=== PATIENT | female | born 1960 | race Caucasian/White ===

== ENCOUNTER 2020-11-21 15:35 | Outpatient (CLI) | payer BC | END 2020-11-21 15:36 | disposition home or self-care (01) | LOC: CSHMAMMO 15:35 | PROVIDERS: ATTEND Internal Medicine | DX: Z12.31 Encounter for screening mammogram for malignant neoplasm of breast (principal) | CPT/HCPCS: 77063; 77067 ==

== ENCOUNTER 2021-11-22 10:51 | Outpatient (CLI) | payer BC | END 2021-11-22 10:52 | disposition home or self-care (01) | LOC: CSHMAMMO 10:51 | PROVIDERS: ATTEND Family Medicine | DX: Z12.31 Encounter for screening mammogram for malignant neoplasm of breast (principal); Z80.3 Family history of malignant neoplasm of breast | CPT/HCPCS: 77063; 77067 ==

== ENCOUNTER 2022-11-25 13:07 | Outpatient (CLI) | payer BC | END 2022-11-25 13:08 | disposition home or self-care (01) | LOC: CSHMAMMO 13:07 | PROVIDERS: ATTEND Family Medicine | DX: Z12.31 Encounter for screening mammogram for malignant neoplasm of breast (principal); Z80.3 Family history of malignant neoplasm of breast | CPT/HCPCS: 77063; 77067 ==

== ENCOUNTER → 2023-12-02 | Day surgery (SDC) | payer MEDICARE | LOC: CSHULT 12:30 | PROVIDERS: ATTEND Internal Medicine | PROC: 0HB5XZX Excision of Chest Skin, External Approach, Diagnostic (ICD-10-PCS; principal; 2023-12-02) | DX: C50.511 Malignant neoplasm of lower-outer quadrant of right female breast (principal); R92.8 Other abnormal and inconclusive findings on diagnostic imaging of breast | CPT/HCPCS: 19083; 88305; 88341; 88342; 88360 ==

== ENCOUNTER 2024-01-13 05:45 | Day surgery (SDC) | payer MEDICARE ==
[2024-01-09 13:37] VITALS: BMI 33.6
[2024-01-13] MEDS ORDERED: Ketorolac Tromethamine 30 MG (1 mL) VIAL ONE (07:36)
[2024-01-13] MEDS ORDERED: Acetaminophen 500 MG TAB ONE (07:37)
[2024-01-13] MEDS ORDERED: EPINEPHrine 1 MG/ML VIAL ONE (09:42)
[2024-01-13] MEDS ORDERED: Bupivacaine 0.25% HCL 30 ML VIAL ONE (09:42)
[2024-01-13] MEDS ORDERED: Lidocaine 1% PF 5 ML VIAL ONE ×2 (09:42→09:43)
[2024-01-13] MEDS ORDERED: fentaNYL 50 mcg/mL 1 mL Vial ONE (09:43)
[2024-01-13] MEDS ORDERED: Midazolam HCl 2 mg/2 ml Vial ONE (09:43)
[2024-01-13] MEDS ORDERED: Dexamethasone 4 mg/ml Vial ONE (09:43)
[2024-01-13] MEDS ORDERED: Ondansetron PF 4 MG/2 ML Vial ONE (09:43)
[2024-01-13] MEDS ORDERED: PROPOFOL 40 ML ONE (09:43)
[2024-01-13] MEDS ORDERED: CEFAZOLIN 2 GM VIAL ONE (10:01)
[2024-01-13] MEDS ORDERED: PHENYLEPHRINE-NS 100 MCG/ML 10 ML SYRINGE ONE (10:33)
[2024-01-13] MEDS ORDERED: Promethazine HCl 25 MG/ML VIAL ONE (11:11)
== END 2024-01-13 12:25 | disposition home or self-care (01) ==
LOC: CSHSDC 05:45
PROVIDERS: ATTEND Specialist
PROC: 0HBT0ZZ Excision of Right Breast, Open Approach (ICD-10-PCS; principal; 2024-01-13)
DX: N64.1 Fat necrosis of breast (principal); L90.5 Scar conditions and fibrosis of skin; E11.9 Type 2 diabetes mellitus without complications; I10 Essential (primary) hypertension; F32.A Depression, unspecified; E78.00 Pure hypercholesterolemia, unspecified; Z79.84 Long term (current) use of oral hypoglycemic drugs; Z79.899 Other long term (current) drug therapy; Z90.710 Acquired absence of both cervix and uterus; Z90.49 Acquired absence of other specified parts of digestive tract; Z90.89 Acquired absence of other organs; Z88.0 Allergy status to penicillin; Z88.1 Allergy status to other antibiotic agents; Z88.8 Allergy status to other drugs, medicaments and biological substances
CPT/HCPCS: 19301; C1713; J0171; J0665; J1100; J1885; J2250; J2405; J2550; J2704; J3010; 88307